=== PATIENT | male | born 1975 | race Caucasian/White ===

== ENCOUNTER 2021-03-03 07:29 | Emergency (ER) | payer OTHER ==
[~2021-03-03] VITALS: Ht 162.6 cm; Wt 65.8 kg
--- NOTE | 2021-03-03 07:39 | NUR ---
DR MYERS AT THE BEDSIDE
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
--- NOTE | 2021-03-03 07:51 | NUR ---
THE PATIENT IS TAKEN TO CT
--- NOTE | 2021-03-03 08:02 | NUR ---
THE PATIENT IS BACK FROM CT
[2021-03-03] MEDS ORDERED: IBUPROFEN 600 MG TABLET ONE (09:28)
[2021-03-03] MEDS ORDERED: IBUPROFEN 600 MG TABLET PO ONE (09:30)
[2021-03-03] MEDS ORDERED: CYCL10TA9 PO (09:53)
[2021-03-03] MEDS ORDERED: IBUP-1955 PO (09:53)
[2021-03-03 10:04] VITALS: BP 101/90
--- NOTE | 2021-03-03 10:04 | NUR ---
Patient discharged to home in stable condition. Written and verbal after care instructions given. Patient verbalizes understanding of instruction.
== END 2021-03-03 10:05 | disposition home or self-care (01) ==
LOC: ER 07:32
DX: S16.1XXA Strain of muscle, fascia and tendon at neck level, initial encounter (principal); S09.8XXA Other specified injuries of head, initial encounter; R51.9 Headache, unspecified; V49.49XA Driver injured in collision with other motor vehicles in traffic accident, initial encounter; Y93.89 Activity, other specified; Y92.488 Other paved roadways as the place of occurrence of the external cause; Y99.8 Other external cause status
CPT/HCPCS: 70450-TC; 72125-TC